=== PATIENT | female | born 2000 | race Two or more races ===

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

== ENCOUNTER → 2019-01-09 11:52 | Outpatient (CLI) | payer OTHER | END | disposition home or self-care (01) | LOC: LAB 11:52 | DX: E06.3 Autoimmune thyroiditis (principal) ==

== ENCOUNTER → 2019-01-09 | Outpatient (CLI) | payer OTHER | END | disposition home or self-care (01) | LOC: SONOGRAMA 12:35 | DX: E06.3 Autoimmune thyroiditis (principal) ==

== ENCOUNTER 2020-03-05 18:10 | Emergency (ER) | payer OTHER ==
[~2020-03-05] VITALS: Ht 144.8 cm; Wt 49.0 kg
== END 2020-03-05 22:43 | disposition home or self-care (01) ==
LOC: ER 18:10
DX: M79.18 Myalgia, other site (principal); M79.604 Pain in right leg

== ENCOUNTER 2021-08-14 12:43 | Emergency (ER) | payer OTHER ==
[~2021-08-14] VITALS: Ht 144.8 cm; Wt 52.2 kg
== END 2021-08-14 16:08 ==
LOC: ER 12:43
DX: M54.2 Cervicalgia (principal); V49.40XA Driver injured in collision with unspecified motor vehicles in traffic accident, initial encounter; Y92.89 Other specified places as the place of occurrence of the external cause

== ENCOUNTER → 2021-12-20 | Outpatient (CLI) | payer OTHER | END | disposition home or self-care (01) | LOC: LAB 13:47 | PROVIDERS: ATTEND Emergency Medicine | DX: R05.9 Cough, unspecified (principal); R50.9 Fever, unspecified; R06.02 Shortness of breath; Z03.818 Encounter for observation for suspected exposure to other biological agents ruled out; Z20.828 Contact with and (suspected) exposure to other viral communicable diseases ==

== ENCOUNTER 2021-12-28 13:46 | Outpatient (CLI) | payer OTHER | END 2021-12-28 13:51 | disposition home or self-care (01) | LOC: LAB 13:46 | PROVIDERS: ATTEND Internal Medicine | DX: Z03.818 Encounter for observation for suspected exposure to other biological agents ruled out (principal) ==

== ENCOUNTER 2024-05-16 08:19 | Outpatient (CLI) | payer OTHER ==
[2024-05-17 12:52] LABS: HEMATOCRIT 37.4 % (36.0-45.00); MEAN CELL VOLUME 88.2 fL (80.00-100.00); MEAN CORPUSCULAR HEMOGLOBIN 30.5 pg (27.00-32.0); MEAN CORPUSCULAR HGB CONC 34.6 g/dl (32.0-36.0); PLATELET COUNT 236 K/uL (150-450); RED BLOOD COUNT 4.24 M/uL (4.00-6.00); RED CELL DISTRIBUTION WIDTH 12.9 % (11.5-14.5)
[2024-05-17 13:16] LABS: PH,URINE 5.5 (5.0-8.0); URINE APPEARANCE Clear; URINE BILIRRUBIN Negative (NEGATIVE); URINE BLOOD Negative; URINE COLOR Yellow; URINE GLUCOSE Negative (NEGATIVE); URINE KETONE Negative (NEGATIVE); URINE LEUKOCYTE Negative; URINE NITRATE Negative; URINE PROTEIN Negative (NEGATIVE)
[2024-05-17 13:23] LABS: URINE BACTERIA 16.3 uL (0.0-1933); URINE EPITHELIAL CELLS 44.3 uL (0.0-38.8); URINE RBC 5.9 uL (0.0-20.8); URINE WBC 27.8 uL (0.0-23.2)
[2024-05-17 14:17] LABS: ALBUMIN 4.1 gm/dL (3.4-5.0); BILIRUBIN TOTAL 0.36 mg/dL (0.3-1.2); CALCIUM 8.9 mg/dL (8.5-10.1); CREATININE SERUM 0.56 mg/dL (0.55-1.02); GFR 131.9; GLOBULINA 3.8 G/DL (2.4-3.5); POTASSIUM 3.76 mEq/L (3.5-5.1); T4 FREE 0.78 NG/ML (0.76-1.46); TOTAL PROTEIN 7.9 gm/dL (6.4-8.2); TSH 1.09 uIU/mL (0.358-3.74)
== END 2024-05-16 23:00 | disposition home or self-care (01) ==
LOC: LAB 08:19
PROVIDERS: ATTEND Specialist
DX: D64.9 Anemia, unspecified (principal); R10.9 Unspecified abdominal pain; N39.0 Urinary tract infection, site not specified; E11.9 Type 2 diabetes mellitus without complications; E03.9 Hypothyroidism, unspecified; E78.2 Mixed hyperlipidemia; E55.9 Vitamin D deficiency, unspecified

== ENCOUNTER 2024-05-17 11:11 | Outpatient (CLI) | payer OTHER | END 2024-05-17 11:16 | disposition home or self-care (01) | LOC: SONOGRAMA 11:11 | PROVIDERS: ATTEND Specialist | DX: E04.1 Nontoxic single thyroid nodule (principal) ==

== ENCOUNTER → 2024-10-23 08:02 | Outpatient (CLI) | payer OTHER | END | disposition home or self-care (01) | LOC: NUCLEAR 08:00 | PROVIDERS: ATTEND Internal Medicine | DX: R00.2 Palpitations (principal) ==

== ENCOUNTER 2025-04-10 15:25 | Outpatient (CLI) | payer OTHER | END 2025-04-10 15:28 | disposition home or self-care (01) | LOC: RAD 15:25 | PROVIDERS: ATTEND Obstetrics & Gynecology | DX: S60.052A Contusion of left little finger without damage to nail, initial encounter (principal); S60.00XA Contusion of unspecified finger without damage to nail, initial encounter; M79.645 Pain in left finger(s) ==

== ENCOUNTER 2025-08-05 06:48 | Outpatient (CLI) | payer OTHER | END 2025-08-05 10:08 | disposition home or self-care (01) | LOC: LAB 06:48 | PROVIDERS: ATTEND Obstetrics & Gynecology | DX: E11.9 Type 2 diabetes mellitus without complications (principal); Z13.1 Encounter for screening for diabetes mellitus ==